=== PATIENT | female | born 1995 ===

== ENCOUNTER 2016-09-30 18:43 | Emergency (ER) | payer BC ==
[2016-09-30 18:54] VITALS: BP 101/59; PULSE 94; RESP 16; TEMP 97.9; O2SAT 100
--- NOTE | 2016-09-30 19:45 | ED PDOC ---
HPI: CCC, URI, Sore Throat Time Seen by Provider: 09/30/16 19:11 Chief Complaint (Nursing): ENT Problem Chief Complaint (Provider): sore throat History Per: Patient History/Exam Limitations: no limitations Have you had recent travel within the past 21 days to any of the following countries: [place], [place], [place] or [place]?: No Onset/Duration Of Symptoms: Days (3) Current Symptoms Are (Timing): Still Present Location Of Pain: Throat, Headache Associated Symptoms: Fever, Chills, Sore Throat. denies: Cough, Sputum, Neck Pain, Sinus Drainage, Myalgias, Nasal Congestion, Nausea, Vomiting, Diarrhea Ear Symptoms: Bilateral: None Past Medical History Reviewed: Historical Data, Nursing Documentation, Vital Signs Vital Signs: Last Vital Signs Temp 97.9 F 09/30/16 18:52 Pulse 94 H 09/30/16 18:52 Resp 16 09/30/16 18:52 BP 101/59 L 09/30/16 18:52 Pulse Ox 100 09/30/16 18:52 - Medical History PMH: Asthma, Gastritis, Migraine - Surgical History Surgical History: Cholecystectomy - Family History Family History: States: Unknown Family Hx - Home Medications Home Medications: Ambulatory Orders Medication Instructions Recorded Amoxicillin [Amoxil 500 mg Cap] 500 mg PO BID #20 cap 09/30/16 - Allergies Allergies/Adverse Reactions: Allergies Allergy/AdvReac Type Severity Reaction Status Date / Time No Known Allergies Allergy Verified 09/30/16 19:23 Review of Systems ROS Statement: Except As Marked, All Systems Reviewed And Found Negative Constitutional: Positive for: Fever. Negative for: Chills ENT: Positive for: Throat Pain, Throat Swelling Respiratory: Positive for: Cough Physical Exam - Reviewed Nursing Documentation Reviewed: Yes Vital Signs Reviewed: Yes - Physical Exam Appears: Positive for: Non-toxic, No Acute Distress, Uncomfortable Head Exam: Positive for: ATRAUMATIC, NORMAL INSPECTION, NORMOCEPHALIC Skin: Positive for: Normal Color, Warm, DRY Eye Exam: Positive for: EOMI, Normal appearance, PERRL ENT: Positive for: TM Is/Are (NAD), Pharyngeal Erythema, Tonsillar Exudate, Tonsillar Swelling, Other (change in voice, ). Negative for: Sinus Pain/ Drainage Cardiovascular/Chest: Positive for: Regular Rate, Rhythm Respiratory: Positive for: CNT, Normal Breath Sounds Neurologic/Psych: Positive for: Alert, Oriented - ECG O2 Sat by Pulse Oximetry: 100 Medical Decision Making Medical Decision Making: strep: (+) Pt will be d.c with amoxicillin advised to have motrin for pain and supportive care. Disposition - Clinical Impression Clinical Impression: Strep pharyngitis - Patient ED Disposition Is Patient to be Admitted: No Counseled Patient/Family Regarding: Studies Performed, Diagnosis, Need For Followup, Rx Given - Disposition Disposition: Routine/Home Disposition Time: 19:45 Condition: STABLE Prescriptions: Amoxicillin [Amoxil 500 mg Cap] 500 mg PO BID #20 cap Instructions: Strep Throat (ED) Forms: [facility] ED School/Work Excuse
== END 2016-09-30 20:00 | disposition home or self-care (01) ==
LOC: H.ER 18:43
DX: J02.0 Streptococcal pharyngitis (principal)

== ENCOUNTER 2017-03-24 20:27 | Emergency (ER) | payer BC ==
[2017-03-24 21:21] VITALS: BP 127/87; PULSE 74; RESP 18; TEMP 97.9; O2SAT 99
[2017-03-24] MEDS ORDERED: Sodium Chloride 0.9% 1,000 ML IV STA (21:57)
[2017-03-24] MEDS ORDERED: Iohexol 240 (50 ml) PO ONE (21:57)
--- NOTE | 2017-03-24 22:00 | ED PDOC ---
HPI: Abdomen Time Seen by Provider: 03/24/17 21:42 Chief Complaint (Nursing): Abdominal Pain Chief Complaint (Provider): abdominal pain History Per: Patient History/Exam Limitations: no limitations Onset/Duration Of Symptoms: Days (1) Current Symptoms Are (Timing): Still Present Location Of Pain/Discomfort: RLQ, LLQ, Suprapubic Quality Of Discomfort: "Pain" Associated Symptoms: Nausea, Vomiting, Diarrhea Additional History Per: Patient Additional Complaint(s): 21 y/o female presents for eval of lower abdominal pain x 1 day. Associated nonbloody diarrhea x 3 days, with intermittent nausea/vomiting x 1 week. Patient concerned she could be , as last period came 1 week early and was heavier than usual. Denies fever, chest pain, shortness of breath, palpitations, dysuria, hematuria, vaginal bleeding/discharge. Past Medical History Reviewed: Historical Data, Nursing Documentation, Vital Signs Vital Signs: Last Vital Signs Temp 97.9 F 03/24/17 21:15 Pulse 74 03/24/17 21:15 Resp 18 03/24/17 21:15 BP 127/87 03/24/17 21:15 Pulse Ox 99 03/25/17 01:13 - Medical History PMH: Asthma, Gastritis, Migraine - Surgical History Surgical History: Cholecystectomy - Family History Family History: States: Unknown Family Hx - Home Medications Home Medications: Ambulatory Orders Medication Instructions Recorded Amoxicillin [Amoxil 500 mg Cap] 500 mg PO BID #20 cap 09/30/16 Dicyclomine [Bentyl] 20 mg PO TID PRN #21 tab 03/25/17 Ondansetron ODT [Zofran ODT] 4 mg PO Q8 PRN #10 odt 03/25/17 - Allergies Allergies/Adverse Reactions: Allergies Allergy/AdvReac Type Severity Reaction Status Date / Time No Known Allergies Allergy Verified 09/30/16 19:23 Review of Systems ROS Statement: Except As Marked, All Systems Reviewed And Found Negative Gastrointestinal: Positive for: Nausea, Vomiting, Abdominal Pain, Diarrhea Physical Exam - Reviewed Nursing Documentation Reviewed: Yes Vital Signs Reviewed: Yes - Physical Exam Appears: Positive for: Well, Non-toxic, No Acute Distress Head Exam: Positive for: ATRAUMATIC, NORMAL INSPECTION, NORMOCEPHALIC Skin: Positive for: Normal Color Eye Exam: Positive for: Normal appearance ENT: Positive for: Normal ENT Inspection Cardiovascular/Chest: Positive for: Regular Rate, Rhythm Respiratory: Positive for: Normal Breath Sounds Gastrointestinal/Abdominal: Positive for: Bowel Sounds, Soft, Tenderness ( diffuse lower discomfort to palpation; no rebound) Back: Positive for: Normal Inspection Extremity: Positive for: Normal ROM Neurologic/Psych: Positive for: Alert, Oriented - Laboratory Results Result Diagrams: 03/24/17 22:30 03/24/17 22:49 - ECG O2 Sat by Pulse Oximetry: 99 - Progress ED Course And Treament: labs, urine, CT abd/pelvis, PO bentyl EXAM: CT Abdomen and Pelvis With Intravenous Contrast EXAM DATE/TIME: 03/24/2017 9:57 PM CLINICAL HISTORY: 21 years old, female; Pain; Abdominal pain; Localized; Left lower quadrant (llq) ; Additional info: Abd pain, diarrhea TECHNIQUE: Axial computed tomography images of the abdomen and pelvis with intravenous contrast. All CT scans at this facility use one or more dose reduction techniques, viz.: automated exposure control; ma/kV adjustment per patient size (including targeted exams where dose is matched to indication; i.e. head); or iterative reconstruction technique. Coronal and sagittal reformatted images were created and reviewed. CONTRAST: 90 mL of administered intravenously. COMPARISON: PELVIS/TRANSVAG US 10/09/2015 9:47:07 PM FINDINGS: Lower thorax: Heart size is normal. Lung bases are clear ABDOMEN: Liver: There is fatty infiltration of the liver. Gallbladder and bile ducts: unremarkable Pancreas: unremarkable Spleen: unremarkable Adrenals: unremarkable Kidneys and ureters: unremarkable Stomach and bowel: Stomach is partially distended with an air-fluid level. Rotation is normal. Small bowel is incompletely opacified with oral contrast. Proximal and mid small bowel is distended with contrast. Mid and distal small bowel are filled with fluid. There is no obstruction. Terminal and distal ileum are mildly distended with fluid. Appendix is unremarkable. There is moderate stool in the right colon. Left colon is incompletely distended which limits evaluation. Appendix: See above. PELVIS: Bladder: unremarkable Reproductive: Uterus and adnexal structures are unremarkable. There is a corpus luteum on the left. ABDOMEN and PELVIS: Intraperitoneal space: There is a small amount of free fluid in the pelvis. There is no free air. Bones/joints: There are no acute osseous abnormalities. There is minimal retrolisthesis L5 on S1. There is mild posterior disc space narrowing L5-S1 Soft tissues: There is a small fat containing umbilical hernia. Vasculature: Vascular structures are unremarkable. Lymph nodes: There is no pathologic adenopathy. IMPRESSION: Fatty liver, no acute solid visceral abnormality; mildly distended small bowel are suggestive of ileus than obstruction; trace fluid in the pelvis physiologic versus recent cyst rupture Patient educated on findings, discharged with rx bentyl, zofran. Advised follow up PMD 2-3 days. Return to ED for worsening/concerning symptoms. Disposition - Clinical Impression Clinical Impression: Gastroenteritis - Patient ED Disposition Is Patient to be Admitted: No Counseled Patient/Family Regarding: Studies Performed, Diagnosis, Need For Followup, Rx Given - Disposition Referrals: [facility] [Outside] Disposition: Routine/Home Disposition Time: 01:17 Condition: IMPROVED Prescriptions: Dicyclomine [Bentyl] 20 mg PO TID PRN #21 tab PRN Reason: Pain, Mild (1-3) Ondansetron ODT [Zofran ODT] 4 mg PO Q8 PRN #10 odt PRN Reason: Nausea/Vomiting Instructions: Gastroenteritis (ED) Print Language: BENINESE
[2017-03-24] MEDS ORDERED: Iohexol 240 (50 ml) ONE (22:03)
[2017-03-24 22:40] LABS: BASO # 0.1 K/uL (0.0-0.2); BASO % 0.9 % (0.0-2.0); EOS # 0.1 K/uL (0.0-0.7); EOS % 1.8 % (0.0-4.0); LYMPH # 3.5 K/uL (1.0-4.3); MEAN CELL VOLUME 88.9 fl (81.0-99.0); MEAN CORPUSCULAR HEMOGLOBIN 29.6 pg (27.0-31.0); MEAN CORPUSCULAR HGB CONC 33.3 g/dL (33.0-37.0); MEAN PLATELET VOLUME 8.6 fl (7.2-11.7); MONO # 0.6 K/uL (0.0-0.8); MONO % 10.3 % (0.0-10.0); NEUT # 1.7 K/uL (1.8-7.0); NRBC % 0.1 % (0.0-0.0); RED CELL DISTRIBUTION WIDTH 13.4 % (11.5-14.5)
[2017-03-24 22:53] LABS: RBC URINE 1 /hpf (0-3); URINE BACTERIA RARE (<OCC); URINE BILIRUBIN NEGATIVE (NEGATIVE); URINE BLOOD NEGATIVE (NEGATIVE); URINE COLOR COLORLESS (YELLOW); URINE GLUCOSE (UA) NEG (Normal); URINE KETONE NEGATIVE (NEGATIVE); URINE LEUKOCYTE ESTERASE NEG Leu/uL (Negative); URINE PROTEIN NEGATIVE (NEGATIVE); URINE UROBILINOGEN 0.2-1.0 mg/dL (0.2-1.0); WBC URINE < 1 /hpf (0-5)
[2017-03-24 22:58] LABS: ALB/GLOB RATIO 1.5 (1.0-2.1); ALKALINE PHOSPHATASE 76 U/L (38-126); ALT/SGPT 24 U/L (9-52); AST/SGOT 31 U/L (14-36); BILIRUBIN,TOTAL 0.6 mg/dl (0.2-1.3); BLOOD UREA NITROGEN 8 mg/dl (7-17); CALCIUM 9.9 mg/dL (8.4-10.2); CARBON DIOXIDE 24 mmol/L (22-30); CHLORIDE 103 mmol/L (98-107); GFR AFRICAN-AMERICAN > 60; GLUCOSE,RANDOM 81 mg/dL (65-105); LIPASE 83 U/L (23-300); POTASSIUM 3.9 MMOL/L (3.6-5.0); SODIUM 142 mmol/l (132-148); TOTAL PROTEIN 7.9 G/DL (6.3-8.2)
[2017-03-24] MEDS ORDERED: Iohexol 300 100 ML IJ ONE (23:42)
[2017-03-24] MEDS ORDERED: Sodium Chloride 0.9% 50 ML IV ONE (23:42)
--- NOTE | 2017-03-25 01:06 | CT ---
EXAM: CT Abdomen and Pelvis With Intravenous Contrast EXAM DATE/TIME: 03/24/2017 9:57 PM CLINICAL HISTORY: 21 years old, female; Pain; Abdominal pain; Localized; Left lower quadrant (llq); Additional info: Abd pain, diarrhea TECHNIQUE: Axial computed tomography images of the abdomen and pelvis with intravenous contrast. All CT scans at this facility use one or more dose reduction techniques, viz.: automated exposure control; ma/kV adjustment per patient size (including targeted exams where dose is matched to indication; i.e. head); or iterative reconstruction technique. Coronal and sagittal reformatted images were created and reviewed. CONTRAST: 90 mL of [id number] administered intravenously. COMPARISON: PELVIS/TRANSVAG US 10/09/2015 9:47:07 PM FINDINGS: Lower thorax: Heart size is normal. Lung bases are clear ABDOMEN: Liver: There is fatty infiltration of the liver. Gallbladder and bile ducts: unremarkable Pancreas: unremarkable Spleen: unremarkable Adrenals: unremarkable Kidneys and ureters: unremarkable Stomach and bowel: Stomach is partially distended with an air-fluid level. Rotation is normal. Small bowel is incompletely opacified with oral contrast. Proximal and mid small bowel is distended with contrast. Mid and distal small bowel are filled with fluid. There is no obstruction. Terminal and distal ileum are mildly distended with fluid. Appendix is unremarkable. There is moderate stool in the right colon. Left colon is incompletely distended which limits evaluation. Appendix: See above. PELVIS: Bladder: unremarkable Reproductive: Uterus and adnexal structures are unremarkable. There is a corpus luteum on the left. ABDOMEN and PELVIS: Intraperitoneal space: There is a small amount of free fluid in the pelvis. There is no free air. Bones/joints: There are no acute osseous abnormalities. There is minimal retrolisthesis L5 on S1. There is mild posterior disc space narrowing L5-S1 Soft tissues: There is a small fat containing umbilical hernia. Vasculature: Vascular structures are unremarkable. Lymph nodes: There is no pathologic adenopathy. IMPRESSION: Fatty liver, no acute solid visceral abnormality; mildly distended small bowel are suggestive of ileus than obstruction; trace fluid in the pelvis physiologic versus recent cyst rupture
== END 2017-03-25 01:27 | disposition home or self-care (01) ==
LOC: H.ER 20:27
DX: K52.9 Noninfective gastroenteritis and colitis, unspecified (principal)
CPT/HCPCS: 74177; 80053; 81003; 81025; 83690; 85025; 99283; J7040; Q9966; Q9967

== ENCOUNTER 2017-10-31 09:10 | Emergency (ER) | payer MEDICAID ==
[2017-10-31 09:22] VITALS: BMI 23.8
[2017-10-31 09:23] VITALS: RESP 18; TEMP 98.7; O2SAT 100
[2017-10-31] MEDS ORDERED: Sodium Chloride 0.9% 1,000 ML IV STA (10:21)
[2017-10-31] MEDS ORDERED: DiphenhydrAMINE 50 mg/ml Inj IV STA (10:21)
[2017-10-31] MEDS ORDERED: DiphenhydrAMINE 50 mg/ml Inj ONE (10:53)
[2017-10-31 11:25] LABS: BASO % 0.3 % (0.0-2.0); EOS % 0.4 % (0.0-4.0); HEMOGLOBIN 15.4 g/dL (12.0-16.0); LYMPH # 0.5 K/uL (1.0-4.3); LYMPH % 9.1 % (20.0-40.0); MEAN CELL VOLUME 88.2 fl (81.0-99.0); MEAN CORPUSCULAR HEMOGLOBIN 30.4 pg (27.0-31.0); MEAN CORPUSCULAR HGB CONC 34.5 g/dL (33.0-37.0); MEAN PLATELET VOLUME 8.7 fl (7.2-11.7); MONO # 0.3 K/uL (0.0-0.8); MONO % 5.7 % (0.0-10.0); NEUT # 4.5 K/uL (1.8-7.0); NEUT % 84.5 % (50.0-75.0); PLATELET COUNT 261 K/uL (130-400); RBC 5.07 Mil/uL (3.80-5.20); WHITE BLOOD COUNT 5.3 K/uL (4.8-10.8)
[2017-10-31 11:31] LABS: ALB/GLOB RATIO 1.3 (1.0-2.1); ALBUMIN 4.6 g/dL (3.5-5.0); ALT/SGPT 36 U/L (9-52); AST/SGOT 27 U/L (14-36); BLOOD UREA NITROGEN 11 mg/dl (7-17); CALCIUM 9.7 mg/dL (8.4-10.2); GFR AFRICAN-AMERICAN > 60; GFR NON-AFRICAN AMERICAN > 60
--- NOTE | 2017-10-31 12:00 | ED PDOC ---
HPI: Headache Chief Complaint (Provider): headache, nausea, vomiting and chest pain History Per: Patient History/Exam Limitations: no limitations Onset/Duration Of Symptoms: Days (1) Current Symptoms Are (Timing): Still Present Severity: Severe Pain Scale Rating Of: 8 Quality: Burning Preceeding Symptoms: Known Migraine Symptoms Associated Symptoms: Photophobia, Nausea, Vomiting, Other (diffuse abdominal pain) Additional Complaint(s): 22 yr old F presents to ED with complaint of worsening headache x 4 days. Today she experienced chest pain, nausea, vomiting and abdominal pain. PMHx includes migraines, gastritis and asthma. Reports headache is 8/10, pulsating with photophobia. Chest pain is mid-sternal, started after 1 episode of nonbilious/ nonbloody emesis, abdominal pain is diffuse/crampy. Denies shoulder or arm pain , weakness, dizziness. She took Advil and her migraine medication (could not recall name) but this did not alleviate her symptoms. She cannot recall the last time she had to use her albuterol. LMP 10/23/17. Meds: Albuterol PRN Allergies: NKDA <Edda Locke - Last Filed: 10/31/17 21:25> <Halina Davis - Last Filed: 11/01/17 17:41> Time Seen by Provider: 10/31/17 09:47 Chief Complaint (Nursing): Headache Supervising Attending Note - Supervising Attending Note The Documented history was done by the: Physician Director [employer], Attending Physician The documented physical exam was done by the: Physician Director [employer], Attending Physician The documented procedures were done by the: Physician Director [employer], Attending Physician - Attestation: I have personally seen and examined this patient.: Yes I have fully participated in the care of the patient.: Yes I have reviewed all pertinent clinical information: Yes <Halina Davis - Last Filed: 11/01/17 17:41> Past Medical History Vital Signs: Last Vital Signs Temp 98.7 F 10/31/17 09:21 Pulse 105 H 10/31/17 09:21 Resp 18 10/31/17 09:21 BP 106/62 10/31/17 09:21 Pulse Ox 100 10/31/17 09:21 - Medical History PMH: Asthma, Gastritis, Migraine - Surgical History Surgical History: Cholecystectomy - Family History Family History: States: Unknown Family Hx - Social History Current smoker - smoking cessation education provided: No Ex-Smoker (has not smoked in the last 12 months): No Alcohol: Social Drugs: Cannabis (last use 1.5 months ago) <Edda Locke - Last Filed: 10/31/17 21:25> Reviewed: Historical Data, Nursing Documentation, Vital Signs Vital Signs: Last Vital Signs Temp 98.7 F 10/31/17 09:21 Pulse 90 10/31/17 15:07 Resp 18 10/31/17 15:07 BP 110/68 10/31/17 15:07 Pulse Ox 100 10/31/17 21:25 <Halina Davis - Last Filed: 11/01/17 17:41> - Home Medications Home Medications: Ambulatory Orders Medication Instructions Recorded Amoxicillin [Amoxil 500 mg Cap] 500 mg PO BID #20 cap 09/30/16 Dicyclomine [Bentyl] 20 mg PO TID PRN #21 tab 03/25/17 Ondansetron ODT [Zofran ODT] 4 mg PO Q8 PRN #10 odt 03/25/17 - Allergies Allergies/Adverse Reactions: Allergies Allergy/AdvReac Type Severity Reaction Status Date / Time No Known Allergies Allergy Verified 09/30/16 19:23 Review of Systems Constitutional: Positive for: Malaise. Negative for: Fever, Chills Eyes: Negative for: Vision Change ENT: Negative for: Nose Discharge, Throat Pain Cardiovascular: Positive for: Chest Pain. Negative for: Light Headedness Respiratory: Negative for: Cough, Shortness of Breath, Wheezing Gastrointestinal: Positive for: Nausea, Vomiting, Abdominal Pain. Negative for : Diarrhea, Constipation, Hematemesis Genitourinary Female: Negative for: Dysuria, Frequency, Hematuria, Pelvic Pain Musculoskeletal: Negative for: Neck Pain, Shoulder Pain, Arm Pain Skin: Negative for: Rash, Lesions Neurological: Negative for: Weakness, Dizziness <Edda Locke - Last Filed: 10/31/17 21:25> ROS Statement: Except As Marked, All Systems Reviewed And Found Negative <Halina Davis - Last Filed: 11/01/17 17:41> Physical Exam - Reviewed Nursing Documentation Reviewed: Yes Vital Signs Reviewed: Yes - Physical Exam Appears: Positive for: Non-toxic, No Acute Distress Head Exam: Positive for: ATRAUMATIC, NORMOCEPHALIC Skin: Positive for: Normal Color, Warm, Dry Eye Exam: Positive for: EOMI, PERRL Neck: Positive for: Painless ROM, Supple Cardiovascular/Chest: Positive for: Regular Rate, Rhythm Respiratory: Positive for: Normal Breath Sounds Gastrointestinal/Abdominal: Positive for: Soft. Negative for: Tenderness Extremity: Positive for: Normal ROM Neurologic/Psych: Positive for: Alert, medical certification specialist II-XII (intact), Oriented, Gait ( sgteady). Negative for: Motor/Sensory Deficits, Aphasia <Halina Davis - Last Filed: 11/01/17 17:41> - Laboratory Results Result Diagrams: 10/31/17 11:15 10/31/17 11:15 - ECG O2 Sat by Pulse Oximetry: 100 - Progress ED Course And Treament: -EKG within normal limits -CBC w/ diff and CMP normal -troponin negative -Udip negative -Upreg negative -Diphenhydramine 25mg IV once, Toradol 15mg IV once, Reglan 10mg IV once, NS 1L IV bolus -patient symptoms improved, remained afebrile with normal vital signs <Edda Locke - Last Filed: 10/31/17 21:25> - Laboratory Results Result Diagrams: 10/31/17 11:15 10/31/17 11:15 <Halina Davis - Last Filed: 11/01/17 17:41> Disposition - Patient ED Disposition Is Patient to be Admitted: No Counseled Patient/Family Regarding: Diagnosis, Need For Followup - Disposition Disposition: Routine/Home Disposition Time: 14:21 <Edda Locke - Last Filed: 10/31/17 21:25> Counseled Patient/Family Regarding: Studies Performed <Halina Davis - Last Filed: 11/01/17 17:41> - Clinical Impression Clinical Impression: Migraine, Gastritis - Disposition Referrals: Stanton Pineda MD [Staff Provider] - Condition: GOOD Additional Instructions: -Follow up with your PMD within 1 week -Return to ED if symptoms worsen or if any concerns -Resume home medications as prescribed by your PMD Instructions: Gastritis, Migraine Headaches in Adults
[2017-10-31 13:00] LABS: BANDS 4 % (0-2); LYMPHOCYTE 10 % (20-50); MONOCYTE 6 % (0-10); NEUTROPHIL 78 % (42-75); PLATELET ESTIMATE NORMAL (NORMAL); REACTIVE LYMPHOCYTES 2 % (0-0); TOTAL CELLS COUNTED 100
[2017-10-31 15:08] VITALS: BP 110/68; PULSE 90
--- NOTE | 2017-10-31 17:52 | CARD ---
APPROVED REPORT EKG Measurement Heart [id number] IL [id number] <Conclusion> Sinus rhythm with short IL Otherwise normal ECG
== END 2017-10-31 15:00 | disposition home or self-care (01) ==
LOC: H.ER 09:10
DX: G43.909 Migraine, unspecified, not intractable, without status migrainosus (principal); K29.70 Gastritis, unspecified, without bleeding; J45.909 Unspecified asthma, uncomplicated; Z87.891 Personal history of nicotine dependence
CPT/HCPCS: 80053; 81025; 84484; 85025; 93005; 96374; 96375; 99285; J1200; J1885; J2765; J7040

== ENCOUNTER 2018-06-24 10:18 | Emergency (ER) | payer SELFPAY ==
[2018-06-24 10:18] VITALS: BMI 23.8
[2018-06-24 10:39] VITALS: BP 108/69; PULSE 75; RESP 16; TEMP 97.8; O2SAT 100
--- NOTE | 2018-06-24 19:15 | ED PDOC ---
HPI: Female Pain Time Seen by Provider: 06/24/18 10:30 Chief Complaint (Nursing): Female Genitourinary Chief Complaint (Provider): DYSURIA History Per: Patient (22 Y/O FEMALE HERE FOR HEMATURIA X 1 DAY INTERMITTENT WORSE X 3 DAYS ASSOCIATED WITH DYSURIA. DENIES ANY FEVERS/LOWER BACK PAIN/VOMITING.) Past Medical History Reviewed: Historical Data, Nursing Documentation, Vital Signs Vital Signs: Last Vital Signs Temp 97.8 F 06/24/18 10:27 Pulse 75 06/24/18 10:27 Resp 16 06/24/18 10:27 BP 108/69 06/24/18 10:27 Pulse Ox 100 06/24/18 10:27 - Medical History PMH: Asthma, Gastritis, Migraine - Surgical History Surgical History: Cholecystectomy - Family History Family History: States: Unknown Family Hx - Home Medications Home Medications: Ambulatory Orders Medication Instructions Recorded Amoxicillin [Amoxil 500 mg Cap] 500 mg PO BID #20 cap 09/30/16 Dicyclomine [Bentyl] 20 mg PO TID PRN #21 tab 03/25/17 Ondansetron ODT [Zofran ODT] 4 mg PO Q8 PRN #10 odt 03/25/17 Cephalexin [Keflex] 500 mg PO TID #15 capsule 06/24/18 Phenazopyridine HCl [Pyridium] 200 mg PO BID PRN #6 tablet 06/24/18 - Allergies Allergies/Adverse Reactions: Allergies Allergy/AdvReac Type Severity Reaction Status Date / Time No Known Allergies Allergy Verified 09/30/16 19:23 Review of Systems ROS Statement: Except As Marked, All Systems Reviewed And Found Negative Physical Exam - Reviewed Nursing Documentation Reviewed: Yes Vital Signs Reviewed: Yes - Physical Exam Appears: Positive for: Well, Non-toxic, No Acute Distress Head Exam: Positive for: ATRAUMATIC, NORMAL INSPECTION, NORMOCEPHALIC Skin: Positive for: Normal Color, Warm, DRY Eye Exam: Positive for: EOMI, Normal appearance, PERRL ENT: Positive for: Normal ENT Inspection Neck: Positive for: Normal, Painless ROM Cardiovascular/Chest: Positive for: Regular Rate, Rhythm Respiratory: Positive for: CNT, Normal Breath Sounds Gastrointestinal/Abdominal: Positive for: Normal Exam, Soft Back: Positive for: Normal Inspection Extremity: Positive for: Normal ROM Neurologic/Psych: Positive for: Alert, Oriented - Laboratory Results Urine POC: Negative Urine dip results: Positive for: Blood. Negative for: Leukocyte Esterase, Nitrate, Ketones, Glucose, Bilirubin, Protein - ECG O2 Sat by Pulse Oximetry: 100 Disposition - Clinical Impression Clinical Impression: Urinary tract infection - Patient ED Disposition Is Patient to be Admitted: No - Disposition [facility] Disposition: Routine/Home Disposition Time: 11:00 Condition: FAIR Prescriptions: Cephalexin [Keflex] 500 mg PO TID #15 capsule Phenazopyridine HCl [Pyridium] 200 mg PO BID PRN #6 tablet PRN Reason: Urinary Discomt Instructions: Urinary Tract Infections in Adults Print Language: HONDURAN
[2018-06-24 19:48] LABS: SQUAMOUS EPITHIAL 1 /hpf (0-5); URINE BACTERIA RARE (<OCC); URINE BILIRUBIN NEGATIVE (NEGATIVE); URINE CLARITY CLEAR (Clear); URINE COLOR STRAW (YELLOW); URINE GLUCOSE (UA) NEG (NEGATIVE); URINE LEUKOCYTE ESTERASE NEG Leu/uL (Negative); URINE PROTEIN NEGATIVE (NEGATIVE); URINE UROBILINOGEN 0.2-1.0 mg/dL (0.2-1.0)
[2018-06-24 19:49] LABS: URINE BLOOD SMALL (NEGATIVE)
== END 2018-06-24 13:00 | disposition home or self-care (01) ==
LOC: H.ER 10:18
DX: N39.0 Urinary tract infection, site not specified (principal)

== ENCOUNTER 2018-11-17 10:57 | Emergency (ER) | payer SELFPAY ==
[2018-11-17 10:57] VITALS: BMI 23.8
[2018-11-17 11:06] VITALS: TEMP 98; O2SAT 100
--- NOTE | 2018-11-17 13:52 | ED PDOC ---
HPI: Female Pain Time Seen by Provider: 11/17/18 13:33 Chief Complaint (Provider): UTI History Per: Patient History/Exam Limitations: no limitations Onset/Duration Of Symptoms: Hrs Additional Complaint(s): 23 yo F with h/o asthma and UTIs in the past presents today for UTI symptoms. SHe notes she woke up this morning with dysuria, frequency and urgency. She has had these symptoms in the past and when she waits too long she starts to get hematuria as well. She reports she is sexually active, does not use condoms, is not concerned for STIs, but states we can test her. SHe denies fever, chills, vaginal discharge, odors, abdominal pain, back pain, nausea or vomiting, h/o kidney stones. PMD: [facility] LMP: 2 weeks ago Abnormal Vaginal Bleeding: No Past Medical History Reviewed: Historical Data, Nursing Documentation, Vital Signs Vital Signs: Last Vital Signs Temp 98 F 11/17/18 11:05 Pulse 83 11/17/18 11:05 Resp 17 11/17/18 11:05 BP 99/62 L 11/17/18 11:05 Pulse Ox 100 11/17/18 11:05 - Medical History PMH: Asthma, Gastritis, Migraine - Surgical History Surgical History: Cholecystectomy - Family History Family History: States: Unknown Family Hx - Home Medications Home Medications: Ambulatory Orders Medication Instructions Recorded Amoxicillin [Amoxil 500 mg Cap] 500 mg PO BID #20 cap 09/30/16 Dicyclomine [Bentyl] 20 mg PO TID PRN #21 tab 03/25/17 Ondansetron ODT [Zofran ODT] 4 mg PO Q8 PRN #10 odt 03/25/17 Cephalexin [Keflex] 500 mg PO TID #15 capsule 06/24/18 Phenazopyridine HCl [Pyridium] 200 mg PO BID PRN #6 tablet 06/24/18 Cephalexin [Keflex] 500 mg PO TID 7 Days #21 capsule 11/17/18 Phenazopyridine [Phenazopyridine 200 mg PO TID PRN 2 Days #6 tab 11/17/18 HCl] - Allergies Allergies/Adverse Reactions: Allergies Allergy/AdvReac Type Severity Reaction Status Date / Time No Known Allergies Allergy Verified 11/17/18 14:01 Review of Systems Constitutional: Negative for: Fever, Chills Gastrointestinal: Negative for: Nausea, Vomiting, Abdominal Pain Genitourinary Female: Positive for: Dysuria, Frequency. Negative for: Incontinence, Hematuria, Vaginal Discharge, Vaginal Bleeding, Pelvic Pain Musculoskeletal: Negative for: Back Pain Physical Exam - Reviewed Nursing Documentation Reviewed: Yes Vital Signs Reviewed: Yes - Physical Exam Comments: GENERAL APPEARANCE: Patient is awake, alert, oriented x 3, in no acute distress. SKIN: Warm, dry; (-) cyanosis. EYES: (-) conjunctival pallor. ENMT: Mucous membranes _moist. Airway patent: (-) stridor. Pharynx: (-) swelling, (-) erythema. NECK: (-) tenderness, (-) stiffness, (-) lymphadenopathy. CHEST AND RESPIRATORY: (-) wheezing; (-) rales, (-) rhonchi, (-) rub; breath sounds equal bilaterally. HEART AND CARDIOVASCULAR: (-) irregularity; (-) murmur, (-) gallop. ABDOMEN AND GI: Soft; normal bowel sounds, (-) tenderness. (-)guarding (-) rebound (-) CVAT EXTREMITIES: (-) deformity, (-) edema. NEURO AND PSYCH: Mental status as above; (-) focal findings. - ECG O2 Sat by Pulse Oximetry: 100 Medical Decision Making Medical Decision Makin:33 initial eval - UTI -- UA, upreg -- urine culture -- GC/Chlamydia 14:55 UA is back shows trace leukocytes and 7 WBC will treat with keflex and pyridium Discussed results, diagnosis, treatment, return precautions and f/u with pt who is understanding, in agreement and stable for dc Disposition - Clinical Impression Clinical Impression: Dysuria, Urinary tract infection - Patient ED Disposition Is Patient to be Admitted: No Counseled Patient/Family Regarding: Studies Performed, Diagnosis, Need For Followup, Rx Given - Disposition Referrals: [facility] [Outside] Disposition: Routine/Home Disposition Time: 14:56 (]) Condition: STABLE Additional Instructions: The emergency medical care you received today was directed at your acute symptoms. If you were prescribed any medication, please fill it and take as directed. It may take several days for your symptoms to resolve. Return to the Emergency Department if your symptoms worsen, do not improve, or if you have any other problems. Please contact your doctor in 2 days for re-evaluation and follow up / or call one of the physicians/clinics you have been referred to that are listed on the Patient Visit Information form that is included in your discharge packet. Bring any paperwork you were given at discharge with you along with any medications you are taking to your follow up visit. Our treatment cannot replace ongoing medical care by a primary care provider (PCP) outside of the emergency department. Prescriptions: Cephalexin [Keflex] 500 mg PO TID 7 Days #21 capsule Phenazopyridine [Phenazopyridine HCl] 200 mg PO TID PRN 2 Days #6 tab PRN Reason: bladder discomfort Instructions: Urinary Tract Infection, Adult (DC), Dysuria, Adult (DC) Forms: [facility] ED School/Work Excuse Print Language: PRYDEINIG - POA Present On Arrival: None
[2018-11-17 14:52] LABS: SQUAMOUS EPITHIAL 8 /hpf (0-5); URINE BACTERIA RARE (<OCC); URINE BILIRUBIN NEGATIVE (NEGATIVE); URINE BLOOD NEGATIVE (NEGATIVE); URINE COLOR STRAW (YELLOW); URINE GLUCOSE (UA) NEG (NEGATIVE); URINE LEUKOCYTE ESTERASE TRACE Leu/uL (Negative); URINE PROTEIN 30 mg/dL (NEGATIVE); URINE UROBILINOGEN 0.2-1.0 mg/dL (0.2-1.0)
[2018-11-17 14:53] LABS: URINE CLARITY CLEAR (Clear)
[2018-11-17 15:10] VITALS: BP 100/60; PULSE 80; RESP 16
== END 2018-11-17 15:11 | disposition home or self-care (01) ==
LOC: H.ER 10:57
DX: N39.0 Urinary tract infection, site not specified (principal)